=== PATIENT | female | born 1950 | race Caucasian/White ===

== ENCOUNTER 2016-06-15 08:34 | Outpatient (CLI) | payer MEDICARE, OTHER | END 2016-06-15 08:35 | disposition home or self-care (01) | DX: C54.1 Malignant neoplasm of endometrium (principal); C56.9 Malignant neoplasm of unspecified ovary ==

== ENCOUNTER 2019-06-23 10:16 | Outpatient (CLI) | payer MEDICARE, OTHER ==
[2019-06-23 12:58] LABS: BUN - BLOOD UREA NITROGEN 21 mg/dL (6-20); CALCIUM 9.5 mg/dL (8.5-10.3); CARBON DIOXIDE - CO2 25 mmol/L (21-32); CHLORIDE 106 mmol/L (101-111); CHOL/HDL RATIO 4.2 (<4.4); CHOLESTEROL 274 mg/dL; CREATININE 1.1 mg/dL (0.4-1.0); GLUCOSE 92 mg/dL (70-100); HDL CHOLESTEROL 66 mg/dL; LDL CHOLESTEROL,CALCULATED 156 mg/dL; LDL/HDL RATIO 2.4 (<4.4); SODIUM 137 mmol/L (135-145); VLDL CHOLESTEROL 52 mg/dL
== END 2019-06-23 23:59 | disposition home or self-care (01) ==
LOC: LAB.WCP 10:16
PROVIDERS: ATTEND Internal Medicine
DX: I10 Essential (primary) hypertension (principal); E78.5 Hyperlipidemia, unspecified
CPT/HCPCS: 36415; 80048; 80061; 83721

== ENCOUNTER 2020-12-18 10:55 | Emergency (ER) | payer MEDICARE, OTHER ==
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
[2020-12-18] MEDS ORDERED: DEXAMETHASONE 10 MG/ML VIAL PO STA (11:16)
[2020-12-18] MEDS ORDERED: CHERRY SYRUP 10 ML UDC PO ONE (11:16)
[2020-12-18] MEDS ORDERED: CETIRIZINE 10 MG TABLET PO STA (11:16)
[2020-12-18] MEDS ORDERED: KETOROLAC 30 MG/ML VIAL IM STA (12:18)
[2020-12-18 13:22] VITALS: BP 123/69
== END 2020-12-18 13:26 | disposition home or self-care (01) ==
LOC: ED 10:55
DX: T63.441A Toxic effect of venom of bees, accidental (unintentional), initial encounter (principal); M79.601 Pain in right arm; M79.652 Pain in left thigh; M79.651 Pain in right thigh; M79.672 Pain in left foot; L53.9 Erythematous condition, unspecified; Z91.030 Bee allergy status
CPT/HCPCS: 99282; 99284; A9270